=== PATIENT | female | born 1960 | race Caucasian/White ===

== ENCOUNTER 2022-01-05 18:33 | Emergency (ER) | payer SELFPAY ==
[~2022-01-05] VITALS: Ht 160 cm; Wt 79.4 kg
[2022-01-05 18:47] LABS: BASOPHILS # (AUTO) 0.1 10^3/uL (0.0-0.1); BASOPHILS % (AUTO) 1 % (0-10); EOSINOPHILS # (AUTO) 0.1 10^3/uL (0.0-0.3); EOSINOPHILS % (AUTO) 1 % (0-10); HEMATOCRIT 41 % (35-52); HEMOGLOBIN 13.4 g/dL (11.5-16.0); LYMPHOCYTES # (AUTO) 2.7 10^3/uL (1.0-4.0); LYMPHOCYTES % (AUTO) 31 % (12-44); MEAN CORPUSCULAR HEMOGLOBIN 29 pg (25-34); MEAN CORPUSCULAR HGB CONC 33 g/dL (32-36); MEAN CORPUSCULAR VOLUME 87 fL (80-99); MEAN PLATELET VOLUME 10.5 fL (9.0-12.2); MONOCYTES # (AUTO) 0.6 10^3/uL (0.0-1.0); MONOCYTES % (AUTO) 7 % (0-12); NEUTROPHILS # (AUTO) 5.2 10^3/uL (1.8-7.8); NEUTROPHILS % (AUTO) 60 % (42-75); PLATELET COUNT 284 10^3/uL (130-400); WHITE BLOOD COUNT 8.6 10^3/uL (4.3-11.0)
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
[2022-01-05 18:54] LABS: ALBUMIN 4.4 GM/DL (3.2-4.5); CHLORIDE 102 MMOL/L (98-107); POTASSIUM 4.2 MMOL/L (3.6-5.0); SODIUM 138 MMOL/L (135-145)
[2022-01-05 18:55] LABS: CALCIUM 9.7 MG/DL (8.5-10.1)
[2022-01-05 18:56] LABS: GLUCOSE 96 MG/DL (70-105)
[2022-01-05 18:57] LABS: CARBON DIOXIDE 24 MMOL/L (21-32); TOTAL PROTEIN 7.8 GM/DL (6.4-8.2)
[2022-01-05 18:58] LABS: BILIRUBIN,TOTAL 0.3 MG/DL (0.1-1.0)
[2022-01-05 19:00] LABS: ALKALINE PHOSPHATASE 52 U/L (40-136); CREATININE SERUM 0.75 MG/DL (0.60-1.30); GFR ESTIMATED 92
[2022-01-05] MEDS ORDERED: HOLD METFORMIN - RECEIVED CONTRAST 20 ML VIAL IV SCH (19:00)
[2022-01-05] MEDS ORDERED: CATHETER FLUSH 10 ML SYR IV PRN (19:00)
[2022-01-05] MEDS ORDERED: IOHEXOL 350 MG/ML 100 ML (OMNIPAQUE 350) VIAL IV ONE (19:00)
[2022-01-05] MEDS ORDERED: NS 100 ML (IVPB) BAG IV ONE (19:00)
[2022-01-05 19:01] LABS: BUN/CREATININE RATIO 27
[2022-01-05 19:03] LABS: ALANINE AMINOTRANSFERASE 18 U/L (0-55); CREATINE KINASE 103 U/L (29-168)
[2022-01-05 19:07] LABS: INR 0.9 (0.8-1.4); PROTHROMBIN TIME PATIENT 12.6 SEC (12.2-14.7)
[2022-01-05 19:10] LABS: CREATINE KINASE MB 1.5 NG/ML (<6.6)
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
[2022-01-05 19:46] LABS: BILIRUBIN,URINE NEGATIVE (NEGATIVE); CLARITY,URINE CLEAR; COLOR,URINE YELLOW; GLUCOSE, URINE (UA) NEGATIVE (NEGATIVE); KETONES,URINE NEGATIVE (NEGATIVE); LEUKOCYTE ESTERASE ,URINE NEGATIVE (NEGATIVE); NITRITE,URINE NEGATIVE (NEGATIVE); PROTEIN,URINE NEGATIVE (NEGATIVE)
[2022-01-05] MEDS ORDERED: KETO10TA PO (19:48)
[2022-01-05] MEDS ORDERED: CYCL10TA25 PO (19:48)
[2022-01-05 19:53] LABS: BACTERIA,URINE LARGE /HPF; WBC,URINE 0-2 /HPF; YEAST,URINE MODERATE /HPF
[2022-01-05] MEDS ORDERED: NITR-65 PO (19:58)
[2022-01-05] MEDS ORDERED: FLUC200T PO (19:58)
[2022-01-05 19:59] LABS: AMPHETAMINE SCREEN, URINE NEGATIVE (NEGATIVE); BARBITURATE SCREEN URINE NEGATIVE (NEGATIVE); BENZODIAZEPINES SCREEN URINE NEGATIVE (NEGATIVE); CANNABINOID SCREEN, URINE NEGATIVE (NEGATIVE); COCAINE SCREEN URINE NEGATIVE (NEGATIVE); METHADONE STAT NEGATIVE (NEGATIVE); OPIATE SCREEN URINE NEGATIVE (NEGATIVE); OXYCODONE STAT NEGATIVE (NEGATIVE); PROPOXYPHENE STAT NEGATIVE (NEGATIVE); TRICYCLIC ANTIDEPRESSANTS SCRE NEGATIVE (NEGATIVE)
[2022-01-05 20:01] VITALS: BP 150/83
== END 2022-01-05 20:03 | disposition home or self-care (01) ==
LOC: EDUNIT# 18:33 → ER 18:36
DX: S16.1XXA Strain of muscle, fascia and tendon at neck level, initial encounter (principal); S39.012A Strain of muscle, fascia and tendon of lower back, initial encounter; G89.29 Other chronic pain; B37.49 Other urogenital candidiasis; M25.551 Pain in right hip; R07.89 Other chest pain; R10.10 Upper abdominal pain, unspecified; F17.210 Nicotine dependence, cigarettes, uncomplicated; F17.290 Nicotine dependence, other tobacco product, uncomplicated; V49.40XA Driver injured in collision with unspecified motor vehicles in traffic accident, initial encounter; Y92.414 Local residential or business street as the place of occurrence of the external cause
CPT/HCPCS: 70450; 71045; 71260; 72125; 72128; 72131; 74177; 80053; 80306; 81000; 82550; 82553; 83874; 85025; 85610; 85730; 87088; 93041; G0480; 36415; 80320; 87077; 87186